=== PATIENT | male | born 1935 | race Caucasian/White ===

== ENCOUNTER 2017-11-07 11:51 | Emergency (ER) | payer BC ==
--- NOTE | 2017-11-07 11:53 | PDOC ---
History of Present Illness - General Chief Complaint: Pain Stated Complaint: INJURY TO RIGHT ANKLE AND FOOT - History of Present Illness Initial Comments: 11/07/17 12:22 82 yo M w a hx of HTN, R hip replacement presents S/P fall from twisting his R ankle. His cleaning lady was at his house and he sprayed the floor with a cleaning spray, walked to the other room, and forgot that the floor was wet. When he came back he slipped on the wet floor and everted his R ankle. When he fell he denies hitting his head, any LOC, or taking any blood thinners. He says there is pain in his ankle as well as the lateral aspect of his right fibula. He was able to walk on the foot immediately after the fall as well as here in the ED. He denies any recent fevers, chills, or infections. Denies Chest pain, SOB, or Difficulty breathing. Denies falling frequently. Denies abdominal pain. Denies any other complaints. Past History - Past Medical History Allergies/Adverse Reactions: Allergies Allergy/AdvReac Type Severity Reaction Status Date / Time No Known Allergies Allergy Verified 11/07/17 11:52 Home Medications: Ambulatory Orders Azilsartan Med/Chlorthalidone [Edarbyclor 40-12.5 mg Tablet] 1 tab PO DAILY Ibuprofen 400 mg PO PRN 11/07/17 Oxycodone HCl/Acetaminophen [Percocet 5-325 mg Tablet] 1 tab PO Q6H #20 tablet MDD 4 tabs 11/07/17 Anemia: No Asthma: No Cancer: No Cardiac Disorders: Yes (Rheumatic fever age 19) CVA: No COPD: No CHF: No Dementia: No Diabetes: No GI Disorders: No Disorders: No HTN: Yes Hypercholesterolemia: No Liver Disease: No Seizures: No Thyroid Disease: No (Thyroid nodule removed 2006) - Surgical History Abdominal Surgery: No Appendectomy: No Cardiac Surgery: No Cholecystectomy: No Lung Surgery: No Neurologic Surgery: No Orthopedic Surgery: (Right Hip Replacement) - Suicide/Smoking/Psychosocial Hx Smoking History: Former smoker Have you smoked in the past 12 months: No If you are a former smoker, when did you quit?: 20 yrs ago Hx Alcohol Use: No Drug/Substance Use Hx: No Substance Use Type: None Hx Substance Use Treatment: No Review of Systems - Review of Systems Comments:: 11/07/17 12:25 CONSTITUTIONAL: Absent: fever, chills, diaphoresis, generalized weakness, malaise, loss of appetite HEENT: Absent: rhinorrhea, nasal congestion, throat pain, throat swelling, difficulty swallowing, mouth swelling, ear pain, eye pain, visual Changes CARDIOVASCULAR: Absent: chest pain, syncope, palpitations, irregular heart rate, lightheadedness , peripheral edema RESPIRATORY: Absent: cough, shortness of breath, dyspnea with exertion, orthopnea, wheezing, stridor, hemoptysis GASTROINTESTINAL: Absent: abdominal pain, abdominal distension, nausea, vomiting, diarrhea, constipation, melena, hematochezia GENITOURINARY: Absent: dysuria, frequency, urgency, hesitancy, hematuria, flank pain, genital pain MUSCULOSKELETAL: Positive: myalgia, arthralgia, joint swelling SKIN: Positive: Bruise on ankle and leg Absent: rash, itching, pallor HEMATOLOGIC/IMMUNOLOGIC: Absent: easy bleeding, easy bruising, lymphadenopathy, frequent infections ENDOCRINE: Absent: unexplained weight gain, unexplained weight loss, heat intolerance, cold intolerance NEUROLOGIC: Absent: headache, focal weakness or paresthesias, dizziness, unsteady gait, seizure, mental status changes, bladder or bowel incontinence PSYCHIATRIC: Absent: anxiety, depression, suicidal or homicidal ideation, hallucinations. *Physical Exam - Physical Exam Comments: 11/07/17 12:27 R Ankle: There is significant TTP in the posterior aspect of the lateral malleolus. There is no TTP in the medial malleolus. No TTP in the base of the 5th metatarsal. No navicular bone TTP. Patient is able to bear weight on foot. There is equal sensation in both feet. 2+ pulses in both feet bilaterally. The right ankle is significantly weaker then the left on extension and flexion. There is diffuse bruising around the lateral and medial aspects of the ankle. R leg: There is minimal TTP in the lateral aspect of the right fibula 2 inchaes below the knee. GENERAL: Well developed, well nourished. Awake and alert. No acute distress. HEENT: Normocephalic, atraumatic. PERRLA, EOMI. No conjunctival pallor. Sclera are non- icteric. Moist mucous membranes. Oropharynx is clear. NECK: Supple. Full ROM. No JVD. No thyromegaly. No lymphadenopathy. CARDIOVASCULAR: Regular rate and rhythm. No murmurs, rubs, or gallops. Distal pulses are 2+ and symmetric. PULMONARY: No evidence of respiratory distress. Lungs clear to auscultation bilaterally. No wheezing, rales or rhonchi. ABDOMINAL: Soft. Non-tender. Non-distended. No rebound or guarding. No organomegaly. Normoactive bowel sounds. MUSCULOSKELETAL Normal range of motion at all joints other than R ankle. No bony deformities or tenderness. No CVA tenderness. EXTREMITIES: No cyanosis. No clubbing. No edema. No calf tenderness. SKIN: Warm and dry. Normal capillary refill. No rashes. No jaundice. NEUROLOGICAL: Alert, awake, appropriate. Cranial nerves 2-12 intact. No deficits to light touch in face, upper extremities and lower extremities. No motor deficits in the in face, upper extremities and lower extremities. Normal speech. PSYCHIATRIC: Cooperative. Good eye contact. Appropriate mood and affect. 11/07/17 12:32 Medical Decision Making - Medical Decision Making 11/07/17 12:31 82 yo M w a hx of HTN, and R hip Fx presents with ankle pain s/p fall, trip, and eversion of right ankle. There is diffuse bruising of ankle and foot. He is neurovascularly intact with equal sensation bilaterally and 2+ pulses. There is TTP in the posterior aspect of the lateral malleolus. No TTP in the medial malleolus, no navicular pain, no pain at the base of the 5th metatarsal, patient was able to bear weight on foot and ankle immediately after fall and here in the ED. Patient did not hit his head, experience LOC, and is not on blood thinners. Plan: Xray of foot, analgesia, re-assess. Xray showed a oblique fracture of the distal R fibula. Patient was put in a splint, given crutches and told to follow up with ortho in the next 2 to 4 days. Will send percocet to his pharmacy for pain control. Patient was given return precautions for when to come back to the ER if he starts to experience significant pain, swelling, loss of sensation. 11/07/17 12:32 11/07/17 13:35 11/07/17 16:32 *DC/Admit/Observation/Transfer Diagnosis at time of Disposition: Fibula fracture - Discharge Dispostion Disposition: HOME Condition at time of disposition: Stable Decision to Admit order: No - Prescriptions Prescriptions: Oxycodone HCl/Acetaminophen [Percocet 5-325 mg Tablet] 1 tab PO Q6H #20 tablet MDD 4 tabs - Referrals Referrals: Jose Daniel León MD [Staff Physician] - - Patient Instructions Printed Discharge Instructions: How to Use Crutches, How to Prevent Falls, Fibula Shaft Fracture Additional Instructions: You came to the ER after falling and hurting your ankle. In the ER the Xray showed you have a spiral fracture in your Right Fibula. We put you in a splint to stabilize your foot and advised not to bear weight on your foot and to use crutches. Please make sure to schedule an appointment with an orthopedist in the next 2 to 4 days to make sure you are getting better and to have a specialist evaluate your foot. We are sending medication to help you deal with the pain to [facility]. Please make sure to go pick them up. If you start to experience significant pain in your foot, or lose sensation, or the pain becomes intolerable please come back to the ER immediately. Print Language: GEORGIAN - Post Discharge Activity
[2017-11-07 12:08] VITALS: BP 157/70; PULSE 76; TEMP 98; BMI 31.6
[2017-11-07] MEDS ORDERED: IBUPROFEN 600 MG TABLET (FP) PO ONE ×2 (12:26→12:28)
--- NOTE | 2017-11-07 12:32 | PDOC ---
Attending Attestation - Resident Resident Name: AdelaashleyGabrielDarrin - ED Attending Attestation I have performed the following: I have examined & evaluated the patient, The case was reviewed & discussed with the resident, I agree w/resident's findings & plan, Exceptions are as noted - HPI HPI: 11/07/17 12:27 82 M with h/o HTN presents to ED with R ankle swelling and pain. Pt states he slipped on a wet floor yesterday, turning his foot outward. He reports that he fell onto his R leg but did not hit his head, did not lose consciousness. Pt endorses pain in his R foot and ankle, as well as his R rome. Took motrin last night. He has been weight-bearing and ambulating on his RLE since the injury. - Physicial Exam PE: 11/07/17 12:28 GENERAL: Awake, alert, and fully oriented, in no acute distress. HEAD: No signs of trauma EYES: PERRLA, EOMI, sclera anicteric, conjunctiva clear ENT: Auricles normal inspection, hearing grossly normal, nares patent, oropharynx clear without exudates. Moist mucosa NECK: Nontender, no stepoffs, Normal ROM, supple, no lymphadenopathy, JVD, or masses LUNGS: Breath sounds equal, clear to auscultation bilaterally. No wheezes, and no crackles HEART: Regular rate and rhythm, normal S1 and S2, no murmurs, rubs or gallops ABDOMEN: Soft, nontender, normoactive bowel sounds. No guarding, no rebound. No masses EXTREMITIES: + RLE with tenderness to lateral malleolus + ecchymosis and edema, mild TTP mid-fibula NEUROLOGICAL: Cranial nerves II through XII intact. 5/5 strength and sensation in all extremities, Normal speech, normal gait, normal cerebellar function SKIN: Warm, Dry, normal turgor, no rashes or lesions noted. - Medical Decision Making 11/07/17 12:32 82 M with R ankle swelling + pain s/p slip and fall yesterday. Neurovascularly intact with palpable pulses. - XR Foot/ankle/tib-fib - Motrin 11/07/17 13:31 XR shows distal fibula fx Pt placed in posterior short leg splint w/ stirrup Given crutches and ortho f/u Neurovascularly intact Pt is well appearing, with normal vitals. Clinically stable for DC at this time. I discussed the physical exam findings, ancillary test results and final diagnoses with the patient. I answered all of the patient's questions. The patient was satisfied with the care received and felt comfortable with the discharge plan and treatment plan. The patient agrees to follow up with the primary care physician within 24-72 hours.
== END 2017-11-07 14:27 | disposition home or self-care (01) ==
LOC: FER 11:51
PROC: 2W3QX1Z Immobilization of Right Lower Leg using Splint (ICD-10-PCS; principal; 2017-11-07)
DX: S82.434A Nondisplaced oblique fracture of shaft of right fibula, initial encounter for closed fracture (principal); W01.0XXA Fall on same level from slipping, tripping and stumbling without subsequent striking against object, initial encounter; Y93.89 Activity, other specified; Y92.9 Unspecified place or not applicable; I10 Essential (primary) hypertension; Z96.641 Presence of right artificial hip joint; E07.9 Disorder of thyroid, unspecified; I00 Rheumatic fever without heart involvement
CPT/HCPCS: 73590-TC-RT-FY; 73610-TC-RT-FY; 73630-TC-RT-FY; 99282-25

== ENCOUNTER 2019-09-23 09:57 | Emergency (ER) | payer BC ==
--- NOTE | 2019-09-23 09:59 | PDOC ---
History of Present Illness - General Chief Complaint: Chest Pain Stated Complaint: CHEST PAIN X24 HOURS Time Seen by Provider: 09/23/19 09:59 - History of Present Illness Initial Comments: 09/23/19 15:17 Chief complaint: Chest pain HPI: Vague, intermittent left upper chest pain beginning yesterday, resolves spontaneously but then recurs. Unrelated to exertion but appears to be aggravated by movement of the left arm and change of positions of the torso. No recent URI symptoms, fever, cough, or shortness of breath. No radiation of the pain. No nausea or diaphoresis. No pain at present Review of systems: As noted above. In addition, denies URI symptoms, sore throat, cough, shortness of breath, abdominal pain, nausea, vomiting, diarrhea, visual or focal neurologic symptoms, unsteadiness of gait. 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 One episode of chest pain greater than 10 years ago, underwent cardiac catheterization and angioplasty, without a stent. Has been followed by stretching machine operator with no known recurrent cardiac ischemia. High blood pressure controlled on medication. Elevated cholesterol on statins. Peripheral vascular disease with bilateral carotid endarterectomies. Social history: Lives with his girlfriend of 40 years, denies tobacco alcohol or drugs. Fully ambulatory, no disabilities. No undue stress Family history: Reviewed and noncontributory including early coronary artery disease, metabolic diseases including diabetes, and cancer Physical exam: Alert and oriented well-developed well-nourished no acute distress cooperative. No chest pain at present Afebrile, vital signs normal PERRLA 4 mm, fundi benign, ENT clear Neck supple without bruit mass or nodes Lungs clear with full breath sounds bilaterally. No wheezes rales or rhonchi CV S1-S2 normal without murmur rub or gallop pulses full and symmetric no JVD or edema no bruits 70 and regular Abdomen soft nontender without mass organomegaly. Bowel sounds normal. No distention Neurological C2 to 12 intact. Strength full and symmetric. No focal sensorimotor deficits. Gait stable and unimpaired Extremities no CCE Skin clear, no rash, adequate turgor and wet mucous membranes Impression: 84-year-old male with vague, poorly characterized chest pain beginning yesterday. Although the pain appears to be positional and aggravated by arm movement, he appears unwilling or unable to adequately characterize it. He has multiple risk factors including prior angioplasty, although this was in the distant past and has had no recent exacerbations. Plan: EKG and enzymes, CBC and chemistries, monitor, observe, further evaluation and treatment depending on results. Past History - Medical History Allergies/Adverse Reactions: Allergies Allergy/AdvReac Type Severity Reaction Status Date / Time No Known Allergies Allergy Verified 09/23/19 09:58 Home Medications: Ambulatory Orders Azilsartan Med/Chlorthalidone [Edarbyclor 40-12.5 mg Tablet] 1 tab PO DAILY 11/07/17 Atorvastatin Ca [Lipitor] 10 mg PO HS 09/23/19 Anemia: No Asthma: No Cancer: No Cardiac Disorders: Yes (Rheumatic fever age 19) CVA: No COPD: No CHF: No Dementia: No Diabetes: No GI Disorders: No Disorders: No HTN: Yes Hypercholesterolemia: No Liver Disease: No Seizures: No Thyroid Disease: No (Thyroid nodule removed 2006) - Surgical History Abdominal Surgery: No Appendectomy: No Cardiac Surgery: No Cholecystectomy: No Lung Surgery: No Neurologic Surgery: No Orthopedic Surgery: (Right Hip Replacement) - Psycho-Social/Smoking History Smoking History: Former smoker Have you smoked in the past 12 months: No If you are a former smoker, when did you quit?: 20 yrs ago Cardiac Specific PMH - Complaint Specific PMHX Pacemaker: No *Physical Exam - Vital Signs Last Vital Signs Temp Pulse Resp BP Pulse Ox 98.3 F 78 20 108/69 96 09/23/19 14:53 09/23/19 14:53 09/23/19 14:53 09/23/19 14:53 09/23/19 14:53 ED Treatment Course - LABORATORY CBC & Chemistry Diagram: 09/23/19 10:58 09/23/19 10:58 - ADDITIONAL ORDERS Additional order review: Laboratory Results 09/23/19 09/23/19 09/23/19 11:00 10:58 10:58 PT with INR 12.20 INR 1.03 Sodium 140 Potassium 4.4 Chloride 108 H Carbon Dioxide 24 Anion Gap 8 BUN 39.5 H Creatinine 1.8 H Est GFR (CKD-EPI)AfAm 39.46 Est GFR (CKD-EPI)NonAf 34.05 Random Glucose 146 H Calcium 8.9 Total Bilirubin 0.4 AST 106 H ALT 44 Alkaline Phosphatase 124 H Creatine Kinase 615 H 620 H Creatine Kinase Index 10.3 H 10.3 H CK-MB (CK-2) 63.7 H 63.9 H Troponin I 7.75 H* Total Protein 6.9 Albumin 3.9 09/23/19 10:58 RBC 3.61 L MCV 96.5 H MCHC 30.4 L RDW 14.9 D MPV 8.5 Neutrophils % 4.9 L Lymphocytes % 93.0 H Monocytes % 1.8 L Eosinophils % 0.3 Basophils % 0.0 - RADIOLOGY Radiology Studies Ordered: Category Date Time Status CHEST X-RAY PORTABLE* [RAD] Stat Radiology 09/23/19 10:00 Ordered - Medications Given in the ED: ED Medications Discontinued Medications Generic Name Dose Route Start Last Admin Trade Name Freq PRN Reason Stop Dose Admin Clopidogrel Bisulfate 600 mg 09/23/19 14:01 09/23/19 14:24 Plavix - PO 09/23/19 14:02 600 mg ONCE ONE Administration Medical Decision Making - Medical Decision Making 09/23/19 14:06 Although there was no chest pain on presentation, patient had another episode while being evaluated. It resolved in several minutes on its own. EKG was reviewed. No old EKG available for comparison. Sinus rhythm with first-degree AV block at a rate of 78/min. Premature supraventricular complexes. PVCs. Questionable less than [address] mm [address]ations of the ST segment in leads II 3 and F, with suspicious contours of the ST T waves. Chest x-ray clear White blood count over 100,000, but the patient says that this is chronic due to leukemia, he is under the care of a labeling specialist, and no treatment has as yet been recommended. H&H and platelets appear to be normal CK is over 600, troponin 7.75, suggestive of acute PR. No electrolyte abnormalities. Minor elevations of glucose and BUN. Patient's stretching machine operator, Dr. Martin, was contacted by phone at [phone]. The case was discussed. She would like the patient transferred immediately to [facility] for catheterization. Received a phone call from the A[facility] Installer at [facility], Dr. Torres, who confirmed that he will perform cardiac catheterization and angioplasty/stent placement if indicated upon the patient's arrival. He recommended additional treatment with Plavix 600 mg and heparin 5000 units before transfer. He did not want continuation of heparin by drip. Patient remains hemodynamically stable. Pain-free at present. Awaiting transport. 09/23/19 15:24 Transported via [facility] to [facility], [facility], as arranged with Drs. Martin and Melissa. No recurrent pain. Clinically and hemodynamically stable at transport. Discharge - Discharge Information Problems reviewed: Yes Clinical Impression/Diagnosis: Acute myocardial infarction Qualifiers: Myocardial infarction type: non-ST elevation myocardial infarction Qualified Code(s): I21.4 - Non-ST elevation (NSTEMI) myocardial infarction Disposition: TRANSFER ACUTE CARE/OTHER HOSP - Admission No - Follow up/Referral - Patient Discharge Instructions - Post Discharge Activity - Transfer to Acute Care Facility Receiving Facility Name: [facility] Accepting Physician:: Veronica Transfer Comment: 09/23/19 13:56 Accepted cardiasc A[facility] at [facility], Dr. Torres. Spoke to Dr. Olsen by phone. Recommended single dose of Plavix 600 mg and 5000 bolus of heparin without a drip.
[2019-09-23 10:09] VITALS: BMI 30.4
[2019-09-23] MEDS ORDERED: ACETAMINOPHEN 325 MG TABLET (FP) ONE (11:29)
[2019-09-23 12:40] LABS: ALBUMIN 3.9 g/dl (3.4-5.0); BILIRUBIN,TOTAL 0.4 mg/dL (0.2-1); BLOOD UREA NITROGEN 39.5 mg/dL (7-18); CALCIUM 8.9 mg/dL (8.5-10.1); CREATININE 1.8 mg/dL (0.55-1.3); POTASSIUM 4.4 mmol/L (3.5-5.1); TOT PROT 6.9 g/dl (6.4-8.2)
[2019-09-23 12:53] LABS: INR 1.03 (0.83-1.09); PROTHROMBIN TIME (PATIENT) 12.2 SEC (9.7-13.0)
[2019-09-23 13:01] LABS: EOS % 0.3 % (0-4.5); HEMATOCRIT 34.8 % (35.4-49); HEMOGLOBIN 10.6 GM/dL (11.7-16.9); MCH 29.3 pg (25.7-33.7); MCHC 30.4 g/dl (32.0-35.9); MEAN CELL VOLUME 96.5 fl (80-96); MEAN PLT VOLUME 8.5 fl (7.5-11.1); MONO % 1.8 % (3.8-10.2); NEUT % 4.9 % (42.8-82.8); PLATELET COUNT 117 K/MM3 (134-434); RBC 3.61 M/mm3 (4.00-5.60); RDW 14.9 % (11.9-15.9)
[2019-09-23] MEDS ORDERED: ASPIRIN 81 MG CHEWABLE TABLETS ONE (13:15)
[2019-09-23] MEDS ORDERED: NITROGLYCERIN 2% OINTMENT - 1GM PACKET TD ONE (13:16)
[2019-09-23 13:39] LABS: ANISOCYTOSIS 0; MACROCYTOSIS 0; PLATELET ESTIMATE DECREASED
[2019-09-23] MEDS ORDERED: CLOPIDOGREL BISULFATE 300 MG TABLET PO ONE (14:01)
[2019-09-23] MEDS ORDERED: HEPARIN NA (PORCINE) 5,000 UNITS/ML 1ML VIAL IVPUSH PRN (14:01)
[2019-09-23] MEDS ORDERED: HEPARIN NA (PORCINE) 5,000 UNITS/ML 1ML VIAL ONE (14:14)
[2019-09-23] MEDS ORDERED: CLOPIDOGREL BISULFATE 300 MG TABLET ONE (14:14)
[2019-09-23 14:58] VITALS: BP 108/69; PULSE 78; TEMP 98.3
--- NOTE | 2019-09-25 12:46 | EKG ---
Test Reason : Blood Pressure : / mmHG Vent. Rate : 078 BPM Atrial Rate : 078 BPM P-R Int : 280 ms QRS Dur : 094 ms QT Int : 396 ms P-R-T Axes : 035 056 046 degrees QTc Int : 451 ms SINUS RHYTHM WITH 1ST DEGREE A-V BLOCK WITH PREMATURE SUPRAVENTRICULAR COMPLEXES AND WITH OCCASIONAL PREMATURE VENTRICULAR COMPLEXES POSSIBLE INFERIOR INFARCT (CITED ON OR BEFORE 29-AUG-2004) ABNORMAL ECG WHEN COMPARED WITH ECG OF 29-AUG-2004 23:44, PREMATURE VENTRICULAR COMPLEXES ARE NOW PRESENT PREMATURE SUPRAVENTRICULAR COMPLEXES ARE NOW PRESENT HI INTERVAL HAS INCREASED VENT. RATE HAS DECREASED BY 54 BPM QUESTIONABLE CHANGE IN INITIAL FORCES OF INFERIOR LEADS Confirmed by NANCY LINDSEY MD ([id number]) on 09/25/2019 12:45:40 PM Referred By: WILY VILLA Confirmed By:NANCY LINDSEY MD
== END 2019-09-23 15:22 | disposition short-term general hospital (02) ==
LOC: FER 09:57
PROC: 3E033GC Introduction of Other Therapeutic Substance into Peripheral Vein, Percutaneous Approach (ICD-10-PCS; principal; 2019-09-23)
DX: I21.4 Non-ST elevation (NSTEMI) myocardial infarction (principal)
CPT/HCPCS: 36415; 71045-TC-FY; 80053; 82550; 82553; 84484; 85025; 85610; 93005; 99285-25; J1644

== ENCOUNTER 2023-03-14 16:25 | Emergency (ER) | payer BC, OTHER ==
[2023-03-14 17:12] VITALS: BP 159/85; PULSE 80; RESP 18; TEMP 98.3; BMI 22.5
== END 2023-03-14 18:32 | disposition home or self-care (01) ==
LOC: FER 16:25
DX: I10 Essential (primary) hypertension (principal); V48.0XXA Car driver injured in noncollision transport accident in nontraffic accident, initial encounter; Y92.9 Unspecified place or not applicable
CPT/HCPCS: 99283-25